=== PATIENT | male | born 1975 | race Caucasian/White ===

== ENCOUNTER 2016-12-06 22:09 | Emergency (ER) | payer OTHER ==
[~2016-12-06] VITALS: Ht 167.6 cm; Wt 94.5 kg
[2016-12-06 22:17] VITALS: Ht 167.6 cm; Wt 94.5 kg
[2016-12-06 23:13] LABS: URINE BLOOD (Dip) POC Negative (NEGATIVE)
--- NOTE | 2016-12-06 23:40 | RADRPT ---
PROCEDURE: US Scrotum. CLINICAL INDICATION: Scrotal pain and swelling. TECHNIQUE: Multiple sonographic images of the scrotal region were obtained utilizing a linear arra y transducer with grayscale and color-flow and pulsed Doppler imaging. The images were reviewed on a high-resolution PACS workstation. COMPARISON: No prior studies are available for comparison. FINDINGS: The right testis measures 3.4 x 1.9 x 2.3 cm. The left testis measures 3.6 x 2.1 x 2.6 cm. There is no intratesticular mass. The epididymi are normal. There is normal flow to both testes demonstrated with color Doppler and pulsed Doppler sonography. There are small bilateral hydroceles with right larger than left. There is no varicocele. The scrotal wall is unremarkable. IMPRESSION: 1. Small bilateral hydroceles with right larger than left. 2. Otherwise normal scrotal ultrasound. RPTAT: QQ .Gurwinder Riggs MD, MD Date Time Electronically viewed and signed by .Gurwinder Riggs MD, on 12/06/2016 23:39 .R/
[2016-12-07] MEDS ORDERED: IBUP-1542 PO (00:08)
--- NOTE | 2016-12-07 00:19 | ERD ---
ER Documentation Chief Complaint Date/Time DATE: 12/07/16 TIME: 00:10 Chief Complaint testicular pain and swelling x 1 day, denies recent injury HPI Patient is a 41-year-old male with a past medical history of migraines who presents to the emergency department with testicular pain and swelling. Patient states the pain started yesterday around 8 AM in the morning. Patient states since that time the pain has resided and the swelling has improved. Patient continues to have mild discomfort. He describes it to be "pressure in his testicles." He states that the pain and swelling is greater in the right testicle. Patient denies any fever, chills, nausea, vomiting, abdominal pain. Patient reports some dysuria but denies any frequency, urgency, hematuria, penile discharge. He denies any testicular trauma. Patient denies any recent sexual activity. ROS All systems reviewed and are negative except as per history of present illness. Medications Home Meds Active Scripts Ibuprofen* (Motrin*) 600 Mg Tab, 600 MG PO Q6, #30 TAB Prov:MARLI AHUMADA PA-C 12/07/16 Allergies Allergies: Coded Allergies: No Known Allergy (Unverified , 12/06/16) PMhx/Soc Medical and Surgical Hx: pt denies Medical Hx, pt denies Surgical Hx Hx Alcohol Use: No Hx Substance Use: No Hx Tobacco Use: No Smoking Status: Never smoker Physical Exam Vitals Vital Signs Date Time Temp Pulse Resp B/P Pulse Ox O2 Delivery O2 Flow Rate FiO2 12/07/16 00:34 98.8 77 18 122/61 100 Room Air 12/06/16 22:17 98.9 62 18 119/59 99 Physical Exam GENERAL: Well-developed, well-nourished male. Appears in no acute distress. HEAD: Normocephalic, atraumatic. EYES: Pupils are equally reactive bilaterally. EOMs grossly intact. No conjunctival erythema. ENT: Moist mucous membranes. No uvula deviation. No kissing tonsils. NECK: Supple. No lymphadenopathy or thyromegaly. No meningismus. LUNG: Clear to auscultation bilaterally. No rhonchi, wheezing, rales or coarse breath sounds. HEART: Regular rate and rhythm. No murmurs, rubs or gallops. ABDOMEN: No scars, ecchymosis or rashes noted. Soft, nontender, and nondistended. Positive bowel sounds in all four quadrants. No rebound tenderness , no guarding. (-) McBurneys point tenderness. No CVA tenderness. BACK: No midline tenderness. MALE GENITALIA: Normal, uncircumcised penis without any lesions, masses or deformities. No penile discharge noted. Normal scrotum without any masses or erythema. Minimal swelling noted to the right testicle. No inguinal hernias. Normal cremasteric reflex. + Prehns sign. EXTREMITIES: Equal pulses bilaterally. No peripheral clubbing, cyanosis or edema. No unilateral leg swelling. NEUROLOGIC: Alert and oriented. Moving all four extremities without any difficulty. Normal speech. Steady gait. SKIN: Normal color. Warm and dry. No rashes or lesions. Results 24 hrs Laboratory Tests Test 12/06/16 23:13 Bedside Urine Blood Negative Bedside Urine Glucose (UA) Negative Bedside Urine Ketones (LAB) Negative Bedside Urine Leukocyte Esterase (L Negative Bedside Urine Nitrite (LAB) Negative Bedside Urine Protein (LAB) Negative Bedside Urine pH (LAB) 5.5 Procedures/MDM ED COURSE: The patient was stable throughout ED course. I kept the patient and/or family informed of laboratory and diagnostic imaging results throughout the ED course. DIAGNOSTIC IMAGING: Read by radiologist. DIAGNOSTIC IMAGING REPORT Patient: SIA RODRIGEZ : 1975 Age: 41 Sex: M MR #: [id number] DOS: 12/06/16 2258 Ordering MD: MARLI AHUMADA PA-C Location: [facility] Room/Bed: PROCEDURE: US Scrotum. CLINICAL INDICATION: Scrotal pain and swelling. TECHNIQUE: Multiple sonographic images of the scrotal region were obtained utilizing a linear array transducer with grayscale and color-flow and pulsed Doppler imaging. The images were reviewed on a high-resolution PACS workstation. COMPARISON: No prior studies are available for comparison. FINDINGS: The right testis measures 3.4 x 1.9 x 2.3 cm. The left testis measures 3.6 x 2.1 x 2.6 cm. There is no intratesticular mass. The epididymi are normal. There is normal flow to both testes demonstrated with color Doppler and pulsed Doppler sonography. There are small bilateral hydroceles with right larger than left. There is no varicocele. The scrotal wall is unremarkable. IMPRESSION: 1. Small bilateral hydroceles with right larger than left. 2. Otherwise normal scrotal ultrasound. RPTAT: QQ .Gurwinder Riggs MD, MD Date Time Electronically viewed and signed by .Gurwinder Riggs MD, on 12/06/2016 23:39 .R/ CC: MARLI AHUMADA PA-C MEDICAL DECISION MAKING: This is a 41-year-old who presents with testicular pain and swelling 1 day. Vital signs were reviewed. Patient was afebrile. Patient was not hypoxic. Testicular doppler ultrasound showed small bilateral hydroceles with right larger than left. Otherwise normal scrotal ultrasound. Urine dip is negative for hematuria or infection. Given these findings, the patients presentation is most consistent with testicular hydrocele. I have a much lower clinical concern for testicular torsion, UTI, pyelonephritis, nephrolithiasis, appendicitis, epididymitis, urethritis, orchitis, balanitis, phimosis, priapism, penile contusion, incarcerated hernia or strangulated hernia. Unable to rule out any testicular masses or malignancy at this time. Patient was advised to follow-up with urologist for further workup and management. PRESCRIPTIONS: Ibuprofen DISCHARGE: At this time, patient is stable for discharge and outpatient management. have instructed the patient to follow-up with his/her primary care physician in 1-2 days. I have advised the patient to follow up with a urologist for further workup. I have instructed the patient to promptly return to the ER for any new or worsening symptoms including increased pain, swelling, redness, warmth or fever. The patient and/or family expressed understanding of and agreement with this plan. All questions were answered. Home care instructions were provided. Departure Diagnosis: Primary Impression: Hydrocele of testis Condition: Stable Patient Instructions: Testicular Pain, Unclear Cause Referrals: BERTHA QUIROZ MD,GARFIELD ALVARADO MD,DIANA GUERRERO MD Additional Instructions: Call your primary care doctor TOMORROW for an appointment during the next 1-2 days.See the doctor sooner or return here if your condition worsens before your appointment time. Patient will need to follow-up with the urologist for further management. MARLI AHUMADA PA-C Dec 07, 2016 00:19 MARLI AHUMADA PA-C Dec 07, 2016 00:19
[2016-12-07 00:34] VITALS: BP 122/61; PULSE 77; RESP 18; TEMP 98.8
== END 2016-12-07 00:39 | disposition home or self-care (01) ==
LOC: FTE 22:09
DX: N43.3 Hydrocele, unspecified (principal)
CPT/HCPCS: 76870; 81003; Z7502